=== PATIENT | female | born 1970 | race Caucasian/White ===

== ENCOUNTER 2020-12-01 06:05 | Emergency (ER) | payer BC, OTHER ==
[2020-12-01] MEDS ORDERED: Orphenadrine 100 MG Tab.ER PO STA (06:43)
--- NOTE | 2020-12-01 06:48 | EDM.PDOC ---
ED HPI GENERAL MEDICAL PROBLEM - General Chief Complaint: Chest Pain Stated Complaint: CHEST PAIN/BP HIGH Time Seen by Provider: 12/01/20 06:26 Source of Information: Reports: Patient History Limitations: Reports: No Limitations - History of Present Illness INITIAL COMMENTS - FREE TEXT/NARRATIVE: Ms. Barker is a very pleasant 50-year-old woman who now presents to the ED stating that she developed a sudden-onset left-sided chest pain, described as "uncomfortable" in a discrete area to her left breast that she points to with 3 fingers, located just inferior to her pacemaker, at 20:00 last night. She states that the pain is present if she palpates the area, exhales, or elevates her arms. If she remains still, she feels no pain. No associated dyspnea, nausea, diaphoresis, or sense of impending doom. No known injury to the area. No prior similar symptoms. The patient did not take any [id number]-kwjewes or home remedies since the onset of her symptoms. Here in the ED, the patient's initial BP is found to be elevated at 167/87, otherwise, she is hemodynamically stable, afebrile, saturating 100% on room air. She appears to be comfortable, in no acute distress. An ECG, obtained at triage, demonstrates a NSR at 87 bpm with a first-degree AV block, but ventricular pacing, with no further interpretation possible. Prior to last night, the patient denies having a recent fever, chills, sore throat, ear pain, nasal or sinus congestion, cough, dyspnea, chest pain, palpitations, nausea, vomiting, constipation, diarrhea, abdominal pain, urinary symptoms, recent weight gain or weight loss, recent bloody bowel movements or black bowel movements, recent joint aches, headaches, or rashes. The patient does not have a PCP. Her woman's health provider is Kika Armando NP. Her Veterinary Technology Instructor is Dr. Chevy Sheehan. She has received 2 COVID vaccinations. Left Chest Pain Score (Numeric/FACES): 3 - Related Data Allergies Allergy/AdvReac Type Severity Reaction Status Date / Time No Known Allergies Allergy Verified 12/01/20 06:23 Home Meds: Home Meds Orphenadrine [Norflex] 1 tab PO Q12H PRN #14 tab.er 12/01/20 [Rx] Past Medical History Cardiovascular History: Reports: Arrhythmia (V-tach, s/p cardiac ablation, pacer) - Infectious Disease History Infectious Disease History: Reports: Chicken Pox - Past Surgical History HEENT Surgical History: Reports: Adenoidectomy, Oral Surgery (dental extractions), Tonsillectomy Cardiovascular Surgical History: Reports: Cardiac Ablation (04/09/2014, in [place] -> 3rd degree AVB -> pacer), Pacer (Jan 2015) Social & Family History - Tobacco Use Tobacco Use Status *Q: Never Tobacco User Second Hand Smoke Exposure: No - Caffeine Use Caffeine Use: Reports: Coffee - Alcohol Use Alcohol Use History: Yes Alcohol Use Frequency: Socially - Recreational Drug Use Recreational Drug Use: No - Living Situation & Occupation Living situation: Reports: , Alone 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 ED EXAM, GENERAL - Physical Exam Exam: See Below Exam Limited By: No Limitations General Appearance: Alert, WD/WN, No Apparent Distress Eye Exam: Bilateral Eye: EOMI, Normal Inspection Ears: Normal External Exam, Hearing Grossly Normal Nose: Normal Inspection Throat/Mouth: Normal Inspection, Normal Lips, Normal Voice, No Airway Compromise Head: Atraumatic, Normocephalic Neck: Normal Inspection, Full Range of Motion Respiratory/Chest: No Respiratory Distress, Lungs Clear, Normal Breath Sounds, No Accessory Muscle Use, Other (Reproducible tenderness to palpation of the left breast inferior to the pacer. Pain is induced with the patient pressing her hands together with outstretched arms in front of her, and by crossing her left upper extremity across her chest.) Cardiovascular: Normal Peripheral Pulses, Regular Rate, Rhythm, No Edema, No Gallop, No JVD, No Murmur, No Rub Peripheral Pulses: 3+: Radial (L), Radial (R) GI/Abdominal: Normal Bowel Sounds, Soft, Non-Tender, No Organomegaly, No Distention, No Abnormal Bruit, No Mass Back Exam: Normal Inspection, Full Range of Motion, NT Extremities: Normal Inspection, Normal Range of Motion, No Pedal Edema, Normal Capillary Refill Neurological: Alert, Oriented, Normal Cognition, No Motor/Sensory Deficits Psychiatric: Normal Affect Skin Exam: Warm, Dry, Intact, Normal Color, No Rash Course - Vital Signs Last Recorded V/S: Last Vital Signs Temp 36.6 C 12/01/20 06:20 Pulse 91 12/01/20 06:20 Resp 16 12/01/20 06:20 BP 167/87 H 12/01/20 06:20 Pulse Ox 100 12/01/20 06:20 - Orders/Labs/Meds Meds: Medications Discontinued Medications Generic Name Dose Route Start Last Admin Trade Name Tajq PRN Reason Stop Dose Admin Orphenadrine Citrate 100 mg 12/01/20 06:43 12/01/20 06:57 Orphenadrine 100 Mg Tab.Er PO 12/01/20 06:44 100 mg ONETIME STA Administration - Re-Assessments/Exams Free Text/Narrative Re-Assessment/Exam: 12/01/20 06:43 The patient's left-sided chest pain is musculoskeletal in etiology. I offered to perform further work-up, which the patient declined. She will be started on Norflex here in the ED, and I will submit a prescription for the same to the pharmacy of her choice that she can knot picker cloth later today and begin this evening. She will begin taking OTC Aleve once she gets home. Departure - Departure Time of Disposition: 06:44 Disposition: Home, Self-Care 01 Condition: Good Clinical Impression: Musculoskeletal chest pain - Discharge Information *PRESCRIPTION DRUG MONITORING PROGRAM REVIEWED*: Not Applicable *COPY OF PRESCRIPTION DRUG MONITORING REPORT IN PATIENT ENEDINA: Not Applicable Prescriptions: Orphenadrine [Norflex] 1 tab PO Q12H PRN #14 tab.er PRN Reason: Muscle Spasm - Painful Instructions: Chest Wall Pain, [id number] Referrals: Kika Armando NP [Nurse Practitioner] - Chevy Sheehan DO [Ordering Only Provider] - Forms: ED Department Discharge Additional Instructions: You were seen in the emergency room after developing sudden onset left-sided chest pain last night, which persisted through this morning. Work-up in the ER included an ECG, which showed a dual paced rhythm, but was otherwise uninterpretable. Based on your history and physical examination, your left-sided chest pain is musculoskeletal in etiology. There is no suggestion of a cardiac component. Further work-up was offered, but declined. You have been started on the muscle relaxant Norflex, and a prescription for Norflex has been sent to the [facility]. Take 1 tablet of Norflex every 12 hours, starting this evening, 12/01/2020. Norflex works well with NSAIDs, such as Aleve (naproxen). You may take 1 tablet of OTC Aleve every 12 hours, with food, starting this morning. If your symptoms persist, please follow-up with your PCP, Kika Armando NP. If any other problems, please do not hesitate to return to the ER. Sepsis Event Note (ED) - Evaluation Sepsis Screening Result: No Definite Risk - Focused Exam Vital Signs: Vital Signs Temp Pulse Resp BP Pulse Ox 12/01/20 06:20 36.6 C 91 16 167/87 H 100
[2020-12-01 07:03] VITALS: BP 144/88; PULSE 75
== END 2020-12-01 07:00 | disposition home or self-care (01) ==
LOC: JD.ED 06:05
DX: R07.9 Chest pain, unspecified (principal)
CPT/HCPCS: 93005; 99284; A9270; 99283